=== PATIENT | female | born 1975 | race American Indian/Alaskan Native ===

== ENCOUNTER 2017-10-24 10:33 | Emergency (ER) | payer MEDICAID, OTHER ==
[2017-10-24] MEDS ORDERED: NACL 0.9% 1000 ML 1,000 ML IV ONE (10:57)
[2017-10-24] MEDS ORDERED: ZOFRAN IV ONE (10:57)
[2017-10-24] MEDS ORDERED: MORPHINE IV ONE (10:58)
--- NOTE | 2017-10-24 11:01 | Emergency Department Report ---
ED Abdominal Pain HPI - General Chief Complaint: Back Pain/Injury Stated Complaint: SEVERE BACK PAIN Time Seen by Provider: 10/24/17 10:43 Source: patient Mode of arrival: Ambulatory Limitations: No Limitations - History of Present Illness Initial Comments: Patient is 42 years old female with no significant past medical history except for ovarian cyst. Patient presented to the ER complaining of right flank pain, intermittent, 10 out of 10, sharp in nature and radiated down to her groin area. Patient also stated that she's been having pressure in her urine. She denied any fever or vomiting. MD Complaint: abdominal pain, flank pain - Related Data Previous Rx's Medication Instructions Recorded Last Taken Type Acetaminophen/Codeine [Tylenol 1 tab PO Q6H PRN #15 tab 10/06/13 Unknown Rx /Codeine # 3 tab] Ciprofloxacin HCl [Cipro] 500 mg PO BID #20 tablet 10/06/13 Unknown Rx Methocarbamol [Robaxin TAB] 750 mg PO Q8H PRN #21 tablet 10/06/13 Unknown Rx Naproxen Sodium (Nf) [Anaprox DS 550 mg PO BID PRN #14 tablet 10/06/13 Unknown Rx TAB] Allergies Allergy/AdvReac Type Severity Reaction Status Date / Time iv contrast Allergy Rash Uncoded 10/06/13 10:08 ED Review of Systems ROS: Stated complaint: SEVERE BACK PAIN Other details as noted in HPI Comment: All other systems reviewed and negative Constitutional: denies: chills, fever Respiratory: denies: cough, orthopnea, shortness of breath, SOB with exertion, SOB at rest Cardiovascular: denies: chest pain, palpitations, dyspnea on exertion Gastrointestinal: denies: abdominal pain, nausea, vomiting Genitourinary: dysuria Neurological: denies: headache, weakness, numbness ED Past Medical Hx - Past Medical History Previous Medical History?: Yes - Surgical History Past Surgical History?: Yes Additional Surgical History: left foot surgery, Left ovarian cyst - Social History Smoking Status: Never Smoker Substance Use Type: Alcohol, Non Opiate Pain - Medications Home Medications: Home Medications Medication Instructions Recorded Confirmed Last Taken Type Acetaminophen/Codeine [Tylenol 1 tab PO Q6H PRN #15 tab 10/06/13 Unknown Rx /Codeine # 3 tab] Ciprofloxacin HCl [Cipro] 500 mg PO BID #20 tablet 10/06/13 Unknown Rx Methocarbamol [Robaxin TAB] 750 mg PO Q8H PRN #21 tablet 10/06/13 Unknown Rx Naproxen Sodium (Nf) [Anaprox DS 550 mg PO BID PRN #14 tablet 10/06/13 Unknown Rx TAB] ED Physical Exam - General Limitations: No Limitations General appearance: alert - Head Head exam: Present: atraumatic, normocephalic, normal inspection - ENT ENT exam: Present: normal exam, normal orophraynx, mucous membranes moist - Neck Neck exam: Present: normal inspection, full ROM. Absent: tenderness, meningismus - Respiratory Respiratory exam: Present: normal lung sounds bilaterally - Cardiovascular Cardiovascular Exam: Present: regular rate, normal rhythm, normal heart sounds - GI/Abdominal GI/Abdominal exam: Present: soft, normal bowel sounds. Absent: distended, tenderness, guarding, rebound, rigid, mass, bruit, pulsatile mass - Extremities Exam Extremities exam: Present: normal inspection, full ROM, normal capillary refill - Back Exam Back exam: Present: normal inspection, full ROM, CVA tenderness (R). Absent: tenderness, CVA tenderness (L), muscle spasm, paraspinal tenderness, vertebral tenderness, rash noted - Neurological Exam Neurological exam: Present: alert, oriented X3, CN II-XII intact, normal gait - Skin Skin exam: Present: warm, intact, normal color ED Course Vital Signs 10/24/17 10/24/17 10/24/17 10:37 11:16 11:46 Temperature 98.7 F Pulse Rate 96 H Respiratory 18 22 22 Rate Blood Pressure 166/88 O2 Sat by Pulse 97 Oximetry 10/24/17 10/24/17 11:58 12:28 Temperature Pulse Rate Respiratory 22 20 Rate Blood Pressure O2 Sat by Pulse Oximetry - Reevaluation(s) Reevaluation #1: 10/24/17 16:18 Patient stated that she is feeling much better. ED Medical Decision Making - Lab Data Result diagrams: 10/24/17 11:18 10/24/17 11:18 - Radiology Data Radiology results: report reviewed Mild right-sided hydronephrosis secondary to a small calculus at the right ureter vesicle junction Critical care attestation.: If time is entered above; I have spent that time in minutes in the direct care of this critically ill patient, excluding procedure time. ED Disposition Clinical Impression: Ureter, calculus Disposition: DC-01 TO HOME OR SELFCARE Is pt being admited?: No Condition: Stable Instructions: Kidney Stones (ED), Renal Colic (ED) Referrals: PRIMARY CARE, [Primary Care Provider] - 3-5 Days LEOBARDO ALFORD MD [Staff Physician] - 3-5 Days
[2017-10-24] MEDS ORDERED: SUBLIMAZE IV ONE (11:51)
[2017-10-24] MEDS ORDERED: SUBLIMAZE ONE (11:52)
[2017-10-24 11:57] LABS: Basophils % (Auto) 0.4 % (0.0-1.8); Eosinophils # (Auto) 0.2 K/mm3 (0.0-0.4); Hematocrit 34.8 % (30.3-42.9); Hemoglobin 11.2 gm/dl (10.1-14.3); Lymphocytes # (Auto) 1.5 K/mm3 (1.2-5.4); Lymphocytes % (Auto) 16.7 % (13.4-35.0); Mean Corpuscular HGB Conc 32 % (30-34); Mean Corpuscular Hemoglobin 27 pg (28-32); Mean Corpuscular Volume 83 fl (79-97); Monocytes # (Auto) 0.5 K/mm3 (0.0-0.8); Monocytes % (Auto) 6.1 % (0.0-7.3); Platelet Count 297 K/mm3 (140-440); Red Blood Count 4.22 M/mm3 (3.65-5.03)
[2017-10-24 12:12] LABS: Alanine Aminotransferase 14 units/L (7-56); Albumin 3.9 g/dL (3.9-5); BUN/Creatinine Ratio 19; Blood Urea Nitrogen 15 mg/dL (7-17); Calcium 8.8 mg/dL (8.4-10.2); Hemolysis Index 2
[2017-10-24 12:16] LABS: Bilirubin,Direct < 0.2 mg/dL (0-0.2)
[2017-10-24 13:28] LABS: Bilirubin,Urine NEG (Negative); Blood,Urine SM (Negative); Color,Urine Amber (Yellow); Protein,Urine <15 mg/dL mg/dL (Negative); WBC,Urine < 1.0 /HPF (0.0-6.0)
[2017-10-24] MEDS ORDERED: TORADOL ONE (16:07)
[2017-10-24] MEDS ORDERED: TORADOL IV ONE (16:09)
[2017-10-24 16:39] VITALS: BP 150/76
--- NOTE | 2017-10-28 14:16 | Cat Scan Report ---
FINAL REPORT PROCEDURE: CT ABDOMEN PELVIS WO CON TECHNIQUE: Computerized axial tomography of the abdomen and pelvis was performed without intravenous contrast. This study is performed without intravascular contrast material and its sensitivity for abdominal and pelvic pathology, including neoplasms, inflammation, abscess, free fluid, thrombosis, arterial dissection and infarction, is reduced compared with a contrast enhanced study. HISTORY: Abdominal Pain/RT flank pain COMPARISON: No prior studies are available for comparison. FINDINGS: Lower Lung vanessa: Small nonspecific patchy ground-glass densities are seen in the lung bases. No dense consolidations or effusions are visualized. There is also a small amount of dependent atelectasis. Upper Abdomen: The liver is enlarged measuring up to 22 centimeters craniocaudal dimension. The liver is otherwise unremarkable. No discrete liver lesions are seen. Gallbladder showed no abnormalities. The intrahepatic ducts are not distended. The adrenal glands, the pancreas and the spleen are unremarkable. Kidneys, Ureters and Urinary bladder: There is a 5.2 x 4.5 millimeter calculus at the right ureteral vesicle junction causing the mild right-sided hydronephrosis. There is also a nonobstructing 4 millimeter x 2 millimeter calculus in the lower 3rd of the right kidney. No other renal or ureteral calculi are seen. Calcifications are seen in the lower pelvis which appear to represent phleboliths. Retroperitoneum: Abdominal aorta appears normal. Nonspecific subcentimeter lymph nodes are seen in the retroperitoneum. No pathologically enlarged lymph nodes are identified. Bowel: There is mild sigmoid diverticulosis without evidence of diverticulitis. Minimal diverticulosis also visualized in the transverse colon. Normal-appearing appendix is seen in the right mid pelvis. No evidence of bowel obstruction ascites or free intraperitoneal gas. Reproductive organs: Uterus and adnexa show no focal abnormalities. Other: No acute bony abnormalities are seen. IMPRESSION: Mild right-sided hydronephrosis secondary to a small calculus at the right ureteral vesicle junction. There is also a small nonobstructing right renal calculus as described. There is mild splenomegaly. No discrete liver lesions are seen. The liver is otherwise unremarkable. Mild colonic diverticulosis without evidence of diverticulitis..
== END 2017-10-24 16:39 | disposition home or self-care (01) ==
LOC: ED 10:33
DX: N20.2 Calculus of kidney with calculus of ureter (principal); Z91.041 Radiographic dye allergy status
CPT/HCPCS: 36415; 74176; 80048; 80074; 81001; 84703; 85025; 96361; 96374; 96375; 99284; J1885; J2270; J2405; J3010; J7030